=== PATIENT | female | born 1925 | race Caucasian/White ===

== ENCOUNTER 2016-05-25 15:24 | Outpatient (CLI) | payer MEDICARE, BC | END 2016-05-25 15:25 | disposition critical access hospital (66) | DX: S01.80XA Unspecified open wound of other part of head, initial encounter (principal); M25.562 Pain in left knee; W19.XXXA Unspecified fall, initial encounter; Y92.122 Bedroom in nursing home as the place of occurrence of the external cause | CPT/HCPCS: A0425; A0429 ==

== ENCOUNTER 2016-05-25 15:41 | Emergency (ER) | payer MEDICARE, BC ==
[2016-05-25] MEDS ORDERED: MORPHINE 2 MG/ML SYRINGE IVP STA (18:57)
[2016-05-25] MEDS ORDERED: MORPHINE 2 MG/ML SYRINGE ONE (19:08)
== END 2016-05-25 19:40 | disposition short-term general hospital (02) ==
DX: S12.121A Other nondisplaced dens fracture, initial encounter for closed fracture (principal); S82.035A Nondisplaced transverse fracture of left patella, initial encounter for closed fracture; S52.501A Unspecified fracture of the lower end of right radius, initial encounter for closed fracture; M54.5 Low back pain; S00.81XA Abrasion of other part of head, initial encounter; S00.03XA Contusion of scalp, initial encounter; W01.0XXA Fall on same level from slipping, tripping and stumbling without subsequent striking against object, initial encounter; Y93.01 Activity, walking, marching and hiking; Y99.8 Other external cause status; F03.90 Unspecified dementia, unspecified severity, without behavioral disturbance, psychotic disturbance, mood disturbance, and anxiety; I10 Essential (primary) hypertension; Z79.82 Long term (current) use of aspirin

== ENCOUNTER 2016-07-31 14:15 | Outpatient (CLI) | payer MEDICARE, BC | END 2016-07-31 14:16 | disposition critical access hospital (66) | LOC: EMS 14:15 | PROVIDERS: ATTEND Surgery | DX: M25.552 Pain in left hip (principal); M54.9 Dorsalgia, unspecified; M54.2 Cervicalgia; W18.30XA Fall on same level, unspecified, initial encounter; Y93.9 Activity, unspecified; Y92.199 Unspecified place in other specified residential institution as the place of occurrence of the external cause | CPT/HCPCS: A0425; A0429 ==

== ENCOUNTER 2016-07-31 14:29 | Emergency (ER) | payer MEDICARE, BC ==
--- NOTE | 2016-07-31 15:11 | ED Physician Documentation ---
PD HPI Fall - Stated complaint Stated Complaint: GLF - Chief complaint Chief Complaint: Ext Problem - History obtained from History obtained from: Patient, EMS, Caregiver - History of Present Illness Mechanism of injury: Tripped (trying to get out of bed) Fall distance: Standing position Where injury occurred: Home (Dementia care unit) Timing - onset: Today Injury(ies) location: Left Lower Extremity (hip and thigh area) Associated symptoms: No: LOC, Neck pain Worsens with: Movement Contributing factors: Anticoagulated. No: Intoxicated Similar symptoms before: Has not had sx before Recently seen: Not recently seen Review of Systems Unable to obtain: Dementia, Other (info from daughter, who visits her often) Cardiac: denies: Chest pain / pressure Respiratory: denies: Dyspnea, Cough GI: denies: Abdominal Pain, Vomiting, Diarrhea Endocrine: reports: Weight loss (significant the past month), Easy bruising / bleeding PD PAST MEDICAL HISTORY - Past Medical History Cardiovascular: Hypertension Neuro: Dementia (does not recognize family. Minimal conversation. Is in bed most of the time. Has refused to eat the past 3 weeks, but does take some fluids. Has lost significant weight the past month. ) - Past Surgical History General: Cholecystectomy Ortho: Knee replacement - Present Medications Home Medications: Ambulatory Orders Medication Instructions Recorded Confirmed Calcium Carbonate [Tums (Calcium 2 tab TID 05/25/16 05/25/16 Carbonate 500mg)] Multivitamin [Multivitamins] 1 tab DAILY 05/25/16 07/31/16 Apixaban [Eliquis] 2.5 mg PO 07/31/16 Diazepam 2.5 mg PO TID PRN #20 tablet 07/31/16 Morphine Sulfate 5 mg PO Q4H PRN #100 ml 07/31/16 Potassium Chloride 20 meq PO 07/31/16 oxyCODONE [Roxicodone] 5 mg PO PRN PRN 07/31/16 07/31/16 - Allergies Allergies/Adverse Reactions: Allergies Allergy/AdvReac Type Severity Reaction Status Date / Time Penicillins Allergy Unknown Verified 05/25/16 15:49 seafood Allergy Unknown Uncoded 05/25/16 15:49 - Social History Does the pt smoke?: No Smoking Status: Never smoker PD ED PE NORMAL - Vitals Vital signs reviewed: Yes - General General: Well developed/nourished, Other (seems comfortable lying still. Pain with any attempt ROM of the left hip. ) - Neck Neck: Supple, no meningeal sign, No adenopathy - Cardiac Cardiac: RRR - Respiratory Respiratory: Clear bilaterally - Abdomen Abdomen: Soft, Non tender, Non distended - Derm Derm: Normal color, Warm and dry - Extremities Extremities: Other (left hip with marked tenderness and pain with even mild ROM. ) - Neuro Neuro: No motor deficit, No sensory deficit. No: Alert and oriented X 3 Results - Vitals Vitals: Vital Signs - 24 hr 07/31/16 07/31/16 07/31/16 14:31 16:34 18:37 Temperature 36.4 C L 36.9 C Heart Rate 89 82 89 Respiratory 16 18 16 Rate Blood Pressure 113/78 110/70 108/49 L O2 Saturation 98 95 98 Oxygen O2 Source Room air - Rads (name of study) head CT Radiology: Prelim report reviewed (no acute bleeding. Subacute/old hygromas noted new since May.), Discussed with rads left hip Radiology: Prelim report reviewed (intertrochanteric fracture, nondisplaced. ) PD MEDICAL DECISION MAKING - ED course Complexity details: reviewed results, considered differential (she has hip fracture. Also noted are some subactue hygromas on CT (presume from falls a month ago). She has severe dementia and does not get out of bed much per daughter. Daughter says the family had previously decided on [employer] status. They would not want to have her undergo surgery. The patient has been not wanting to eat for 3-4 weeks (could relate to head CT findings), and the family feels she is at end of life. They would prefer to have her back to [facility] unit and have Hospice involved for comfort care. I had PIA Sinha help with setting up treatment. [facility] has a temporary hospital bed they can use until Hospice comes in fully (their assessment not until next Thursday). Will provide oral pain meds and antispasmodic/anti-anxiety meds. BLS ambulance arranged back to [place] unit. ), d/w patient (not much understanding due to significant dementia) , d/w family (daughter) Departure - Departure Disposition: Home, Self Care Clinical Impression: Subdural hygroma, Poor appetite Dementia Qualifiers: Dementia type: unspecified type Dementia behavioral disturbance: without behavioral disturbance Qualified Code(s): F03.90 - Unspecified dementia without behavioral disturbance Hip fracture, left Qualifiers: Encounter type: initial encounter Fracture type: closed Qualified Code(s): S72.002A - Fracture of unspecified part of neck of left femur, initial encounter for closed fracture Condition: Stable Record reviewed to determine appropriate education?: Yes Instructions: Fx Hip Follow-Up: Anna Chavarria PA-C [Primary Care Provider] - Prescriptions: Diazepam 2.5 mg PO TID PRN #20 tablet PRN Reason: Spasms Morphine Sulfate 5 mg PO Q4H PRN #100 ml PRN Reason: Pain Comments: Pain medications every 3-4 hours if needed. Muscle relaxant meds as needed for spasms, and particularly before bed. Bedrest. Encourage hydration. Other meds as usual. Discharge Date/Time: 07/31/16 18:53
[2016-07-31] MEDS ORDERED: ONDANSETRON 4 MG/2 ML VIAL IVP STA (15:23)
[2016-07-31] MEDS ORDERED: MORPHINE 2 MG/ML SYRINGE IVP STA (15:23)
[2016-07-31] MEDS ORDERED: ONDANSETRON 4 MG/2 ML VIAL ONE (15:34)
[2016-07-31] MEDS ORDERED: MORPHINE 2 MG/ML SYRINGE ONE (15:34)
--- NOTE | 2016-07-31 16:48 | XRAY Preliminary Report ---
Exam: XR Femur 2V LT IMPRESSION: 1. Left femur intertrochanteric fracture with small displacement and ill defined fracture line, patho logic fracture cannot be excluded. 2. Negative for dislocation or subluxation. 3. Multilevel moderate degenerative disk disease in the mid-lower lumbar spine and mild left sacroili itis. [facility] SITE ID: [id number]
--- NOTE | 2016-07-31 16:51 | XRAY Report ---
EXAM: LEFT FEMUR RADIOGRAPHY EXAM DATE: 07/31/2016 04:32 PM. CLINICAL HISTORY: Fell with left thigh pain. COMPARISON: None. TECHNIQUE: 2 views. FINDINGS: Bones: There is intertrochanteric fracture of the left femur with ill-defined fracture line and small displacement. There is heterogeneous bone marrow density in the visualized left pelvic and left femu r. Joints: The visualized hip and knee joints are normal. No effusions. Multilevel moderate degenerative disk disease in the mid-lower lumbar spine. There is a subchondral sclerotic reaction in the left si gmoid joint. Soft Tissues: No radiopaque finding body. IMPRESSION: 1. Left femur intertrochanteric fracture with small displacement and ill defined fracture line, patho logic fracture cannot be excluded. 2. Negative for dislocation or subluxation. 3. Multilevel moderate degenerative disk disease in the mid-lower lumbar spine and mild left sacroili itis. [facility] Referring Provider Line: [phone] SITE ID: [id number]
--- NOTE | 2016-07-31 17:03 | CT Preliminary Report ---
Exam: CT Head W/O IMPRESSION: 1. Compared to the prior study from 05/25/2016, interval development of bilateral hemispheric subdura l hygromas/now chronic subdural hematomas, measuring 9 mm in thickness on the right (series 6 image 1 7) and 8mm on the left (series 6 image 17). 2. No evidence of acute intracranial hemorrhage. 3. Generalized age-related cortical atrophic changes without evidence of acute intracranial abnormali ty. The ordering provider was paged at the time of this dictation. [facility] SITE ID: [id number]
--- NOTE | 2016-07-31 17:06 | XRAY Preliminary Report ---
Exam: XR Pelvis 1 View IMPRESSION: Left femur intertrochanteric fracture with small displacement and ill-defined fracture cedric duenas. [facility] SITE ID: [id number]
--- NOTE | 2016-07-31 17:06 | CT Report ---
EXAM: CT HEAD EXAM DATE: 07/31/2016 04:06 PM. CLINICAL HISTORY: Fell to left side; on Eliquis. COMPARISON: CT head 05/25/2016 TECHNIQUE: Multiaxial CT images were obtained from the foramen magnum to the vertex. IV contrast: Non e. Reformats: Coronal. In accordance with CT protocol optimization, one or more of the following dose reduction techniques w ere utilized for this exam: automated exposure control, adjustment of mA and/or KV based on patient s ize, or use of iterative reconstructive technique. FINDINGS: Parenchyma: No acute intraparenchymal hemorrhage. No evidence of mass, midline shift, or CT findings of acute infarction. Bedolla-white differentiation is distinct. Extraaxial Spaces: Interval development of bilateral hemispheric subdural hygromas/now chronic subdur al hematomas, measuring 9 mm in thickness on the right (series 6 image 17) and 8mm on the left (serie s 6 image 17). Ventricles: The ventricles and cortical sulci are enlarged, consistent with age-related tissue loss. Sinuses: Status post bilateral lens replacement surgeries. Imaged paranasal sinuses, orbits otherwise , and mastoids show no significant abnormality. Bones: Likely chronic nasal bone fractures bilaterally. Other: Diffuse chronic microangiopathic white matter changes are evident. Atherosclerosis of the intr acranial arteries. IMPRESSION: 1. Compared to the prior study from 05/25/2016, interval development of bilateral hemispheric subdura l hygromas/now chronic subdural hematomas, measuring 9 mm in thickness on the right (series 6 image 1 7) and 8mm on the left (series 6 image 17). 2. No evidence of acute intracranial hemorrhage. 3. Generalized age-related cortical atrophic changes without evidence of acute intracranial abnormali ty. The ordering provider was paged at the time of this dictation. [facility] Referring Provider Line: [phone] SITE ID: [id number]
--- NOTE | 2016-07-31 17:09 | XRAY Report ---
EXAM: PELVIS RADIOGRAPHY EXAM DATE: 07/31/2016 04:33 PM. CLINICAL HISTORY: Fall, right hip pain. COMPARISON: None. TECHNIQUE: 1 view. FINDINGS: Bones: There is intertrochanteric fracture of the left femur with small displacement or ill-defined f racture line. Joints: The visualized hip, pubis symphysis are preserved. No subluxation or dislocation. Mild subcho ndral sclerotic reactions in the sacroiliac joints bilaterally, greater on the right side visualized. There is multilevel moderate degenerative disk disease in the mid-lower lumbar spine. Soft Tissues: No radiopaque foreign body. IMPRESSION: Left femur intertrochanteric fracture with small displacement and ill-defined fracture cedric duenas. [facility] Referring Provider Line: [phone] SITE ID: [id number]
[2016-07-31] MEDS ORDERED: HYDROcod/ACET 5/325 Prepack 6 PO ONE ×2 (18:24→18:35)
[2016-07-31] MEDS ORDERED: LORazepam 0.5 MG TABLET PO STA (18:25)
[2016-07-31] MEDS ORDERED: LORazepam 0.5 MG TABLET ONE (18:36)
[2016-07-31 18:44] VITALS: BP 108/49
== END 2016-07-31 18:53 | disposition home or self-care (01) ==
LOC: EDUNIT# → ED 14:29
DX: S72.142A Displaced intertrochanteric fracture of left femur, initial encounter for closed fracture (principal); W01.0XXA Fall on same level from slipping, tripping and stumbling without subsequent striking against object, initial encounter; Y92.019 Unspecified place in single-family (private) house as the place of occurrence of the external cause; D18.1 Lymphangioma, any site; F03.90 Unspecified dementia, unspecified severity, without behavioral disturbance, psychotic disturbance, mood disturbance, and anxiety; I10 Essential (primary) hypertension
CPT/HCPCS: 70450; 72170; 73552; 96374; 96375; 99284; A9270

== ENCOUNTER 2016-07-31 19:02 | Outpatient (CLI) | payer MEDICARE, BC | END 2016-07-31 19:03 | disposition home or self-care (01) | LOC: EMS 19:02 | PROVIDERS: ATTEND Surgery | DX: Z74.01 Bed confinement status (principal); S72.002A Fracture of unspecified part of neck of left femur, initial encounter for closed fracture | CPT/HCPCS: A0425; A0428 ==